=== PATIENT | female | born 1970 | race Hispanic/Latino ===

== ENCOUNTER 2024-04-25 10:23 | Observation (INO) | payer OTHER ==
[~2024-04-25] VITALS: Ht 152.4 cm; Wt 60.3 kg
--- NOTE | 2024-04-25 10:41 | ERN ---
ED Note History of Present Illness Stated Complaint: ULCER PAIN, EAR AND URINE INFECTION Chief Complaint: Abdominal Pain Time Seen by MD: 10:32 Time Seen by Midlevel: 10:40 Dictation: . Derik 53-year-old female with history of type 2 diabetes, hypertension, thyroid dysfunction, neuropathy, gastric ulcer, and hyperlipidemia who presented to the emergency department this morning for evaluation abdominal pain. She reports upper abdominal/LUQ pain accompanied by nausea as well as suprapubic pain and frequent urination, chills and subjective fever. She also states she has some right ear pain which she believes is from getting water in her ear. She states her blood glucose levels have been elevated. She has no local PCP as she is visiting from the [place] area. She denies having a chest pain, palpitations, edema, vomiting, hematemesis, melena, hematochezia, melena, hem atochezia, flank pain, headache, or dizziness. Allergies: Coded Allergies: No Known Allergies (Unverified Allergy, Unknown, 04/25/24) Home Meds Reported Medications Tramadol HCl (Tramadol HCl ER) 100 Mg Cpbp.25.75, 50 MG PO AD PRN for PAIN LEVEL 6 TO 10 04/25/24 Glipizide (Glipizide) 10 Mg Tablet, 10 MG PO AD, TAB 04/25/24 Gabapentin (Gabapentin) 100 Mg Capsule, 300 MG PO TID, CAP 04/25/24 Metformin HCl (Metformin HCl) 1,000 Mg Tablet, 1000 MG PO BID, TAB 04/25/24 Pantoprazole Sodium (Pantoprazole Sodium) 40 Mg Tablet.dr, 1 TAB PO DAILY for 30 Days, #30 TAB 0 Refills 04/25/24 Ezetimibe (Ezetimibe) 10 Mg Tablet, 1 TAB PO DAILY for 30 Days, #30 TAB 0 Refills 04/25/24 Past Medical History Past Medical History: Diabetes-Type II, High Cholesterol, Hypertension, Hyperthyroid Additional Past Medical Hx: NEUROPATHY, GASTRIC ULCERS Surgical History: BTL Surgical History Other: CAROTID ARTERY PSYCH History: no pertinent psych hx Social History: Negative, Other (Visiting [place] from [place].) History: Not Applicable RN Note Reviewed/Agreed w/PFSH: Yes Review of System Dictation REVIEW OF SYSTEMS: CONSTITUTIONAL: Patient denies sweats and weight changes. Reports fatigue, general weakness, chills, and subjective fever EYES: Patient denies any visual symptoms. EARS, NOSE, AND THROAT: No difficulties with hearing. No symptoms of rhinitis or sore throat. Reports right ear pain. CARDIOVASCULAR: Patient denies chest pains, palpitations, orthopnea and paroxysmal nocturnal dyspnea. RESPIRATORY: No dyspnea on exertion, no wheezing or cough. GI: No vomiting, diarrhea, constipation, hematochezia or melena. Reports upper abdominal pain and nausea. : No urinary hesitancy or dribbling. No nocturia. No abnormal urethral discharge. Reports suprapubic pain, dysuria, and urinary frequency. MUSCULOSKELETAL: No myalgias or arthralgias. NEUROLOGIC: No chronic headaches, no seizures. Patient denies numbness, tingling or weakness. PSYCHIATRIC: Patient denies problems with mood disturbance. No problems with anxiety. ENDOCRINE: No excessive urination or excessive thirst. Reports elevated blood glucose readings. DERMATOLOGIC: Patient denies any rashes or skin changes. Initial Vital Sign VS Vital Signs Date Time Temp Pulse Resp B/P (MAP) Pulse Ox O2 Delivery O2 Flow Rate FiO2 04/25/24 10:28 100.0 112 20 133/79 97 Room Air 0 04/25/24 14:01 21 Physical Exam Dictation Vital signs: Reviewed. Temperature 100.1 Constitutional: No acute distress. Non-toxic appearing. Head/Face: Normocephalic, atraumatic. Eyes: Periorbital areas with no swelling, redness, or edema. Lids and lashes are normal. Conjunctival injection is absent. Sclera anicteric. Pupils equal, round, reactive to light. ENT: Pinnas intact and no signs of trauma or erythema. Right ear canal with erythema. TMs no erythema. No nasal discharge or bleeding noted. Oropharynx with no exudate, redness, swelling, masses, exudates, or evidence of obstruction. Uvula midline. Mucous membranes are dry. Neck: Trachea midline, no masses palpated, and no cervical lymphadenopathy. No swelling. Supple, full range of motion. Chest/Axilla: No tenderness, no crepitus, no paradoxical movement, no retractions. Cardiovascular: Regular rate, regular rhythm, no murmur, no gallops. Symmetric pulses. No peripheral edema. Tachycardic with heart rate 112. Normotensive Respiratory: Respirations even and unlabored. Lung sounds clear; no wheezes, rales or rhonchi. Room air SpO2 98% Gastrointestinal: Inspection is normal. No distention is appreciated. Bowel sounds are normal. No mass or organomegaly . Tenderness diffusely No rebound. No rigidity. No voluntary or involuntary guarding. No Cade's sign. : + suprapubic tenderness. Negative CVA tenderness bilaterally. Neurological: Normal speech, gross motor function intact, gross sensory function intact. No focal weakness/Paresthesia. Musculoskeletal/Extremities: All extremities have full range of motion, no pain or tenderness on palpation. Symmetric pulses. Integumentary: Intact. Skin is normal color, warm and dry. Cap refill less than 3 seconds. Results (Laboratory/Radiology) Laboratory/Radiology Labs Reviewed?: Yes CT Scan Comment: PATIENT: OMEGA ROMANO MR#: [id number] : 1970 SEX: F AGE: 53 LOCATION: [facility] ORDER 1236 STATUS: [facility] REPORT#: [id number] SERVICE 1235 REASON: left sided abdominal pain ORDERING PHYSICIAN: ANA LAURA ZEPEDA NP PROCEDURE: ABD PEL WO - CT ABDOMEN/PELVIS W/O CONTRAST CT ABDOMEN/PELVIS W/O CONTRAST HISTORY: Epigastric pain COMPARISON: None TECHNIQUE: Multiple sequential axial images of the abdomen and pelvis were obtained from the dome of the diaphragm through symphysis pubis. Patient was not given contrast through intravenous route. Oral contrast was not given. FINDINGS: No pleural effusion is seen bilaterally. There is no evidence of parenchymal disease or pulmonary nodule of the visualized lower lungs. Degenerative changes of the thoracolumbar spine are present. The heart is not enlarged. Liver measures 17 cm. Stomach is poorly distended with wall thickening may be related to gastritis. The liver, spleen, adrenal glands and pancreas are unremarkable. There is no evidence of hydronephrosis bilaterally. No evidence of renal stone is seen. Fecal material is seen in the colon. There are normal size retroperitoneal and mesenteric lymph nodes. No ascites is seen. Appendix is prominent measuring 6 mm. Minimal adjacent fat stranding is seen with early acute appendicitis is not completely excluded. Clinical correlation is recommended. Pelvic sidewalls are symmetric bilaterally. Bladder is well distended without wall thickening. IMPRESSION: 1. Appendix is prominent measuring 6 mm. Minimal adjacent fat stranding is seen with early acute appendicitis is not completely excluded. Clinical correlation is recommended. There is stomach wall thickening with poor distention may be related to gastritis. CT was performed with one or more following dose reduction techniques: automated exposure control, adjustment of the mA and kv according to patient's size, or use of a iterative reconstruction technique. DICTATED BY: ULISES HENNING MD DATE: 04/25/24 1334 ELECTRONICALLY SIGNED BY: ULISES HENNING MD DATE: 04/25/24 1339 ED Course ED Course Orders Procedure Category Date Status Time Pathology Request LAB 04/26/24 In Process Tissue 10:20 Patient with abdomen that is diffusely tender. CT scan of the abdomen and pelvis revealed prominent appendix measuring 6 mm with adjacent fat stranding suspicious for early appendicitis. Laboratory findings as noted below. No elevation of WBCs or lactic acid level. Na 134 and glucose 306. While in the emergency department she received doses of Zofran, Dilaudid, Rocephin, and NS 1000 mL IV as bolus. Findings were discussed with Dr.Oyetunde Root who accepts patient for consultation. Per his request CT abdomen and pelvis with oral and IV contrast will be ordered. Findings were discussed with hospitalist Medical Decision Making MDM MDM: Differential diagnosis: Diverticulitis, UTI, Appendicitis Rationale: Tests considered and ordered secondary to shared decision making include: labs, ECG and radiology Previous outside records reviewed: Old ER visits. Risk of complication and/or morbidity or mortality of patient management: None Medications-Per medication reconciliation Need for hospitalization: Patient does meet criteria for hospitalization. Need for emergency major/minor surgery: No There are no social concerns with this patient. Prescription drug management Prescriptions will include symptomatic care Patient's prior external medical records from other ER visits were reviewed by me as indicated. Prior testing and results from previous visits were reviewed. Prior tests were taken into account with medical decision making and resource utilization, independent historian/historians were used to obtain complete medical history. I independently interpreted the test that were performed, results were reviewed by me and considered findings on radiology if ordered. Medical management and examination interpretation discussions were had by me with other qualified healthcare professionals as indicated for the patient's care. DX & DISP Disposition: Observation Departure Impression: Primary Impression: Abdominal pain Additional Impressions: Type 2 diabetes mellitus with hyperglycemia, Possible early appendicitis Condition: Stable Assign Patient to: Dr. Lennox Monzon I performed a substantive portion of the visit. I have reviewed and personally made and approve the management plan that is documented in the notes by myself with SUELLEN/resident. I acknowledged full responsibility for the patient's management plan. ANA LAURA ZEPEDA NP Apr 25, 2024 10:41 JUANCARLOS GALAN DO May 02, 2024 07:40
[2024-04-25 11:56] LABS: BASOPHILS # (AUTO) 0.03 K/uL (0.00-0.20); BASOPHILS % (AUTO) 0.4 % (0.0-5.0); EOSINOPHILS # (AUTO) 0.05 K/uL (0.00-0.70); EOSINOPHILS % (AUTO) 0.7 % (0.0-8.0); HEMATOCRIT 42.2 % (36-48); IMMATURE GRANULOCYTE ABSOLUTE 0.02 K/uL (0-1); LYMPHOCYTES # (AUTO) 2.3 K/uL (1.0-4.8); MEAN CORPUSCULAR HEMOGLOBIN 28.8 pg (27.0-33.0); MEAN CORPUSCULAR HGB CONC 33.2 g/dL (32.0-36.0); MEAN CORPUSCULAR VOLUME 86.8 fL (79-99); MONOCYTES # (AUTO) 0.6 K/uL (0.1-1.0); NEUTROPHILS # (AUTO) 4.6 K/uL (1.8-7.7); NEUTROPHILS % (AUTO) 60.6 % (40.0-77.0); PLATELET COUNT (AUTO) 204 K/uL (130-400); RED BLOOD CELL COUNT(AUTO) 4.86 MIL/uL (4.00-5.50); RED CELL DISTRIBUTION WIDTH 12.2 % (11.0-15.5); WHITE BLOOD COUNT (AUTO) 7.6 K/uL (4.8-10.8)
[2024-04-25 12:06] LABS: CREATININE 0.6 mg/dL (0.5-1.0); POTASSIUM 4.2 mmol/L (3.5-5.1)
--- NOTE | 2024-04-25 13:38 | HMCIMG ---
CT ABDOMEN/PELVIS W/O CONTRAST HISTORY: Epigastric pain COMPARISON: None TECHNIQUE: Multiple sequential axial images of the abdomen and pelvis were obtained from the dome of the diaphragm through symphysis pubis. Patient was not given contrast through intravenous route. Oral contrast was not given. FINDINGS: No pleural effusion is seen bilaterally. There is no evidence of parenchymal disease or pulmonary nodule of the visualized lower lungs. Degenerative changes of the thoracolumbar spine are present. The heart is not enlarged. Liver measures 17 cm. Stomach is poorly distended with wall thickening may be related to gastritis. The liver, spleen, adrenal glands and pancreas are unremarkable. There is no evidence of hydronephrosis bilaterally. No evidence of renal stone is seen. Fecal material is seen in the colon. There are normal size retroperitoneal and mesenteric lymph nodes. No ascites is seen. Appendix is prominent measuring 6 mm. Minimal adjacent fat stranding is seen with early acute appendicitis is not completely excluded. Clinical correlation is recommended. Pelvic sidewalls are symmetric bilaterally. Bladder is well distended without wall thickening. IMPRESSION: 1. Appendix is prominent measuring 6 mm. Minimal adjacent fat stranding is seen with early acute appendicitis is not completely excluded. Clinical correlation is recommended. There is stomach wall thickening with poor distention may be related to gastritis. CT was performed with one or more following dose reduction techniques: automated exposure control, adjustment of the mA and kv according to patient's size, or use of a iterative reconstruction technique.
[2024-04-25] MEDS: ondanSETRON 4MG INJ IVP ONE (13:49)
[2024-04-25] MEDS: acetaMINOPHEN 325 MG TAB PO ONE (13:50)
[2024-04-25] MEDS: cefTRIAXone 1G VIAL IVPB ONE (13:50)
[2024-04-25] MEDS: 0.9%NACL 1000ML 1,000 ML IV ONE (13:50)
[2024-04-25] MEDS ORDERED: DIATR MEGLU/DIATRIZOATE SODIUM 30 ML BOTTLE ONE ×2 (16:16→16:51)
[2024-04-25] MEDS ORDERED: hydrALAZine 20MG/ML VIAL IV PRN (16:30)
[2024-04-25] MEDS ORDERED: LACTULOSE 20 GM/30 ML UDCUP PO PRN (16:30)
[2024-04-25] MEDS ORDERED: guaiFENesin-DM 200/20MG 10ML PO PRN (16:30)
[2024-04-25] MEDS ORDERED: ZOLPidem TARTrate 5 MG TAB PO PRN (16:30)
[2024-04-25] MEDS: INSULIN humuLIN R 100 UNIT/ML 3ML SQ SCH (16:30)
[2024-04-25] MEDS ORDERED: FAMOTIDINE 20MG VIAL IV PRN (16:30)
[2024-04-25] MEDS ORDERED: VANCOMYCIN PROTOCOL PER PHARMACY IV PRN (16:30)
[2024-04-25] MEDS ORDERED: PoTASSium chl 10% ELIXIR 20MEQ 20 MEQ/15 ML UDCUP PO PRN (16:30)
[2024-04-25] MEDS ORDERED: MAG/ALUM/SIMETH 30 ML UDCUP PO PRN (16:30)
[2024-04-25] MEDS ORDERED: DEXTROSE 50%-WATER 50 ML DISP.SYRIN IV PRN (16:30)
[2024-04-25] MEDS ORDERED: GLUCAGON 1MG KIT 1 MG ML IM PRN (16:30)
[2024-04-25] MEDS ORDERED: PoTASSium chloRIDE 10MEQ/100ML 100 ML IV PRN (16:30)
[2024-04-25] MEDS ORDERED: acetaMINOPHEN 325 MG TAB PO PRN ×2 (16:30)
[2024-04-25] MEDS ORDERED: DiphenhydrAMINE HCL 50 MG/ML VIAL IV PRN (16:30)
[2024-04-25] MEDS ORDERED: NITROGLYCERIN 0.4 MG SL TAB SL PRN (16:30)
[2024-04-25] MEDS ORDERED: IOHEXOL 350 MG/ML 100ML INFUS..BTL IV ONE (16:32)
--- NOTE | 2024-04-25 16:51 | HP ---
[facility] HISTORY AND PHYSICAL Date of Service: Apr 25, 2024 Time of Service: 16:38 PCP: Patient has PCP in [place] she goes to the clinic so no specific Dr. Admitting: [place] Allergies: No Allergy Information Available, No Known Drug Allergies HISTORY OF PRESENT ILLNESS: [ Patient is 53 years old female with a past medical history of diabetes, hyperlipidemia, stroke 2022, neuropathy, gastric ulcer, gastritis, GERD, hypothyroidism, hysterectomy, right carotid surgery, who came to emergency department with a complaint of left upper abdominal pain, which has been accompanied by nausea as well as suprapubic pain and frequent urination with the chills and subjective fever.] She also states she has some right ear pain which she believes is from getting water in her ear. She states her blood glucose levels have been elevated. She has no local PCP as she is visiting from the [place] area. She denies having a chest pain, palpitations, edema, vomiting, hematemesis, melena, hematochezia, melena, hematochezia, flank pain, headache, or dizziness. Most recent vital signs temperature 100.2 pulse 102 respiration 18 blood pressure 124/84. Patient is on room air satting 99%. WBC 7.6 hemoglobin 14 hematocrit 42.2 platelets 204. Sodium 134 potassium 4.2 CO2 27 BUN 14 creatinine 0.6 GFR 107 random glucose 306 lactic acid [address] abdomen /pelvis showed early acute appendicitis. Surgeon was consulted for abnormal CT abdomen/pelvis four acute appendicitis and asked to order CT abdomen/pelvis with contrast. Patient will be admitted under hospitalist care for further evaluation. A.m. labs REVIEW OF SYSTEMS CONSTITUTIONAL: Denies fevers, chills, or night sweats. No unintentional weight loss reported. NEUROLOGICAL: Denies headache, amaurosis fugax, motor weakness, sensory deficit, vertigo/spinning sensation, gait abnormalities, or tremors. ENT: No hearing loss, otalgia, otorrhea, rhinitis, rhinorrhea, hoarseness, or so re throat. CARDIOVASCULAR: Denies any exertional angina, dyspnea on exertion, orthopnea, paroxysmal nocturnal dyspnea, palpitations, life-threatening arrhythmias, claudication. PULMONARY: Denies any shortness of breath, cough, phlegm/sputum, hemoptysis, pleuritic chest pain. SLEEP: Denies morning headaches, daytime somnolence or napping. Denies difficulty falling asleep, staying asleep, waking from sleep. Denies knowledge of snoring. GASTROINTESTINAL: Denies any type of dysphagia to either liquids or solids. Denies vomiting, pyrosis, early satiety, diarrhea, constipation, or changes in stool consistency or caliber. Denies coffee-ground emesis, hematemesis, hematochezia, or melanotic stools. Abdominal pain associated with the nausea GENITOURINARY: Denies frequency, urgency, nocturia, hematuria or incontinence (Storage/Irritative symptoms.) Low urinary stream, straining to void, urinary intermittency or hesitancy, splitting of the voiding stream, terminal dribbling. ENDOCRINOLOGIC: Denies polyuria, polydipsia, polyphagia or heat/cold intolerances. HEMATOLOGIC: Denies thrombophilia/previous clots, or coagulopathy/bleeding disorders. ONCOLOGIC: Denies personal history of malignancy. DERMATOLOGIC: Denies rashes or pruritus. PSYCHIATRIC: Denies any suicidal or homicidal ideation. Denies hallucinations. PAST MEDICAL HISTORY: [ Diabetes, hyperlipidemia, stroke 2022, neuropathy, gastric ulcer, gastritis, GERD, hypothyroidism ] PAST SURGICAL HISTORY: [ Hysterectomy, right carotid surgery ] PAST SOCIAL HISTORY: [Patient is a current smoker 4 to 6 cigarettes a day. Patient denies drinking alcohol. Patient denies any drug abuse. ] FAMILY HISTORY: [Noncontributory ] Coded Allergies: No Known Allergies (Unverified Allergy, Unknown, 04/25/24) PHYSICAL EXAM GENERAL APPEARANCE: The patient is awake, alert, and oriented, in no acute cardiopulmonary distress. NEUROLOGICAL: Cranial nerves II-XII grossly intact. Motor is 5/5 in bilateral upper and lower extremities proximal to distal. No sensory deficits. HEENT: Face is symmetric. Pupils are equal and reactive. Extraocular movements are intact. NECK: Supple. No JVD. No thyromegaly. No submental, submandibular, pre- /postauricular, occipital or supraclavicular lymphadenopathy. CHEST: Normal chest expansion. No Telemetry. LUNGS: Absence of any rales, rhonchi or any wheezing. CARDIOVASCULAR: Regular. S1 and S2 normal. No appreciable rubs, murmurs or gallops. ABDOMEN: Soft, nontender, and nondistended. There is no rebound, voluntary guarding, or rigidity. : Deferred. No [place]ud[place]. EXTREMITIES: Non-edematous and not cyanotic. No clubbing. Good capillary refill. SKIN: No skin breakdown. Vital Sign (Last 24 Hours) 04/25/24 14:01 Temp 100.2 Pulse 102 Resp 18 B/P (MAP) 124/84 Pulse Ox 99 O2 Delivery Room Air* O2 Flow Rate 0 FiO2 21 LABS: Laboratory: Test 04/25/24 11:45 Range/Units White Blood Count 7.6 4.8-10.8 K/uL Red Blood Count 4.86 4.00-5.50 MIL/uL Hemoglobin 14.0 12.0-16.0 g/dL Hematocrit 42.2 36-48 % Mean Corpuscular Volume 86.8 79-99 fL Mean Corpuscular Hemoglobin 28.8 27.0-33.0 pg Mean Corpuscular Hemoglobin Concent 33.2 32.0-36.0 g/dL Red Cell Distribution Width 12.2 11.0-15.5 % Platelet Count 204 130-400 K/uL Mean Platelet Volume 10.5 7.5-10.5 fL Immature Granulocyte % (Auto) 0.3 0-1 % Neutrophils (%) (Auto) 60.6 40.0-77.0 % Lymphocytes (%) (Auto) 30.0 21.0-51.0 % Monocytes (%) (Auto) 8.0 3.0-13.0 % Eosinophils (%) (Auto) 0.7 0.0-8.0 % Basophils (%) (Auto) 0.4 0.0-5.0 % Neutrophils # (Auto) 4.6 1.8-7.7 K/uL Lymphocytes # (Auto) 2.3 1.0-4.8 K/uL Monocytes # (Auto) 0.6 0.1-1.0 K/uL Eosinophils # (Auto) 0.05 0.00-0.70 K/uL Basophils # (Auto) 0.03 0.00-0.20 K/uL Absolute Immature Granulocyte (auto 0.02 0-1 K/uL Nucleated Red Blood Cells 0.0 0.0-0.19 % Sodium Level 134 L 136-145 mmol/L Potassium Level 4.2 3.5-5.1 mmol/L Chloride Level 101 101-111 mmol/L Carbon Dioxide Level 27 21-32 mmol/L Blood Urea Nitrogen 14 7-18 mg/dL Creatinine 0.6 0.5-1.0 mg/dL Glomerular Filtration Rate Calc 107 >90 mL/min Random Glucose 306 H 70-105 mg/dL Lactic Acid Level 1.0 0.8-2.5 mmol/L Total Calcium 9.4 8.5-10.1 mg/dL Lipase 27 16-77 U/L Current Medications Medications (Trade) Dose Ordered Sig/Olesya Route PRN Reason Start Time Stop Time Status Last Admin Dose Admin Dextrose (D50w) 50 ml AD PRN IV HYPOGLYCEMIA PROTOCOL 04/25/24 16:30 05/25/24 16:29 Glucagon (Glucagon 1mg Kit) 1 mg AD PRN IM HYPOGLYCEMIA PROTOCOL 04/25/24 16:30 05/25/24 16:29 Insulin Human Regular (humuLIN R 100 UNIT/ML 3ML) INSULIN SLIDING SCAL... ACHS SQ 04/25/24 16:30 05/25/24 16:29 Magnesium Sulfate 50 ml @ 0 mls/hr PROTOCOL PRN IV Other 04/25/24 16:30 05/25/24 16:29 Potassium Chloride 100 ml @ 100 mls/hr AD PRN IV POTASSIUM PROTOCOL 04/25/24 16:30 05/25/24 16:29 Potassium Chloride (K-Dur/Klor-Con 20meq) 10 meq AD PRN PO POTASSIUM PROTOCOL 04/25/24 16:30 05/25/24 16:29 Potassium Chloride (KCl 10% Elixir 20meq/15ml) 10 meq AD PRN PO POTASSIUM PROTOCOL 04/25/24 16:30 05/25/24 16:29 DIAGNOSTICS / RADIOLOGY: [ ] ASSESSMENT: [ Acute sepsis POA Uncontrolled diabetes mellitus type 2 with hypoglycemia POA Acute appendicitis per CT abdomen/pelvis POA Severe acute abdominal pain due to above Hyperlipidemia, POA Electrolyte imbalance hyponatremia 134 Uncontrolled hypertension POA Neuropathy POA Gastric ulcer POA Gastritis POA GERD POA Hypothyroidism POA History of stroke 2022 ] PLAN: [ Admit to: Medical-surgical floor Consults: Surgeon Antibiotics: Vancomycin, Zosyn Tests: CT abdomen/pelvis with contrast Fluids normal saline at 70 mL/hour NEURO: Minimize central acting medications as possible. Fall Precautions. Well lighted room through the day and minimize interruptions through the night to prevent acute delirium. PULMONARY: Supplemental 02 as needed BiPAP as necessary, for respiratory distress Titrate Fio2 to keep Spo2 > or = 90% DuoNebs and CPT as needed IS hourly while awake for pulmonary hygiene Out of bed to chair as tolerated VAP Bundle Maintain aspiration precautions at all times CARDIOVASCULAR: Follow hemodynamics. Vital signs per facility protocol GI & NUTRITION: CT abdomen/pelvis showed early acute appendicitis Continue nutritional support Aspirations precautions Prokinetic agents and laxatives as needed KIDNEYS & ELECTROLYTES: Strict monitoring of intake and output Daily weights Avoid nephrotoxic agents Monitor electrolytes and replace as needed Goal urine output of 30mL/hr or 0.5mL/kg/hr Medications to be dosed according to renal function. Avoid contrast if possible ENDOCRINE: Maintain blood glucose between 100-180 at all times. Insulin sliding scale for blood glucose management Hypoglycemia and hyperglycemia protocol in place INFECTIOUS DISEASE: Urinalysis pending Trend temperature, WBC and procalcitonin level Follow cultures, deescalate antibiotics as soon as possible. Panculture if new onset fever HEMATOLOGY & COAGULATION: Monitor H&H. Keep Hgb > 7 Transfuse 1 unit of PRBC for Hgb < 7 Transfuse 1 pack of platelets of platelets < 20, 000 Watch for any signs and symptoms of bleeding SKIN: Pressure ulcer prevention per facility protocol Specialty mattress as needed Treatment plan discussed with patient and family at the bedside Medications to be reconciled once obtained by patient and/or family and available to be reconciled in computer p.r.n. medication for pain nausea and vomiting Questions were answered We will continue to monitor the patient closely [employer] for disposition Rehab: PT/OT GI: PPI DVT: SCD's Code Status: Full Resuscitation Disposition: TBD Prognosis: Guarded] ADVANCED CARE PLANNING 1. Which of the following were discussed? Hospice Care - Yes / No Therapeutic options - Yes / No Advance Directives - Yes / No Other discussions - 2. Discussed with who? Patient 3. Voluntary nature of this service was explained to the patient? Yes / No 4. Amount of time spent - __ more than 35 minutes 5. Reviewed by Physician? (if this service was performed by NPP) Yes / No ATTESTATION BY PHYSICIAN I have seen and examined the patient. I reviewed the documentation, medical decision making, and treatment plan as noted by the mid-level provider above. I agree with the findings and plan of care. ELICIA Novak MD P[employer]ER Apr 25, 2024 16:51
[2024-04-25 18:07] LABS: APPEARANCE,URINE CLEAR (CLEAR); BILIRUBIN,URINE NEGATIVE (NEGATIVE); COLOR,URINE LIGHT-YELLOW (YELLOW); GLUCOSE, URINE (UA) >=1000 mg/dL (NEGATIVE); KETONES,URINE NEGATIVE (NEGATIVE); LEUKOCYTE ESTERASE ,URINE 250 Leu/uL (NEGATIVE); NITRATE,URINE 2+ (NEGATIVE); OCCULT BLOOD,URINE NEGATIVE (NEGATIVE); PH,URINE 5.5 (5.0-8.0); PROTEIN,URINE NEGATIVE (NEGATIVE); UROBILINOGEN,URINE 0.2 mg/dL (0.2-1.0)
[2024-04-25 18:10] LABS: BACTERIA,URINE FEW /HPF (None Seen); SQUAMOUS EPITHELIAL CELL,UR FEW /HPF (0-2)
[2024-04-25 18:22] LABS: INFLUENZA TYPE A Negative For Type A (NEGATIVE); INFLUENZA TYPE B Negative For Type B (NEGATIVE)
[2024-04-25] MEDS: 0.9%NACL 1000ML 1,000 ML IV SCH (18:35)
[2024-04-25] MEDS: VANCOMYCIN 1.5 GM/250 ML BAG 250 ML IV ONE (19:02)
--- NOTE | 2024-04-25 19:25 | HMCIMG ---
CT ABDOMEN/PELVIS W/CONTRAST HISTORY: possible appy needs oral and IV contrast TECHNIQUE: CT ABDOMEN/PELVIS W/CONTRAST 100 Omnipaque contrast was used. Oral contrast was given. Coronal and sagittal reformats were obtained. CT was performed with one or more of the following dose reduction techniques: Automated exposure control, adjustment of the mA and/or kV according to the patient's size, or use of the iterative reconstruction technique. Comparison: 04/25/2024 FINDINGS: No pulmonary consolidation or pleural effusion is seen. There is hepatic steatosis. No calcified gallstone is seen. The spleen, pancreas, and adrenal glands are within normal limits. There is no hydronephrosis. Area of hypoenhancement seen in the upper pole of the left kidney concerning for infection. Correlate clinically. There is underdistention versus mild urinary bladder thickening. Correlate with urinalysis. Mildly dilated appendix measuring 8 mm with questionable mild adjacent fat stranding which may represent early acute appendicitis in the proper clinical setting. There is no evidence of perforation. No bowel obstruction is seen. No bowel obstruction identified. No free abdominal air is seen. Degenerative changes of the spine. Visualized aorta is normal in caliber. IMPRESSION: 1. Area of hypoenhancement seen in the upper pole of the left kidney concerning for infection. Correlate clinically. There is underdistention versus mild urinary bladder thickening. Correlate with urinalysis. 2. Mildly dilated appendix measuring 8 mm with questionable mild adjacent fat stranding which may represent early acute appendicitis in the proper clinical setting. There is no evidence of perforation. No bowel obstruction is seen.
[2024-04-25] MEDS: ketOROlac 15MG/ML VIAL (15MG/ML) IV PRN (19:32)
[2024-04-25] MEDS: MAGNESIUM CITRATE 296 ML SOLUTION PO ONE (19:37)
[2024-04-25] MEDS ORDERED: GLIP10TA16 PO (19:42)
[2024-04-25] MEDS ORDERED: EZET10TA48 PO (19:42)
[2024-04-25] MEDS ORDERED: METF-446 PO (19:42)
[2024-04-25] MEDS ORDERED: PANT40TA54 PO (19:42)
[2024-04-25] MEDS ORDERED: TRAM100C3 PO (19:42)
[2024-04-25] MEDS ORDERED: GABA-529 PO (19:42)
--- NOTE | 2024-04-25 19:45 | NUR ---
called for report, floor nurse not avail, will wait for callback
[2024-04-25] MEDS: acetaMINOPHEN 325 MG TAB PO PRN (19:48)
--- NOTE | 2024-04-25 19:58 | NUR ---
ER REPORT ATTEMPTMADE TO RECEIVE REPORT ON PT. EXT 107 NO ANSWER
[2024-04-25] MEDS: ZOSYN 3.375GM+NS 50ML 50 ML ONE (20:00)
[2024-04-25] MEDS: FAMOTIDINE 20MG VIAL IV SCH (20:01)
[2024-04-25] MEDS: HEParin 5,000 UNIT VIAL SQ SCH (20:01)
[2024-04-25] MEDS: ZOSYN 3.375GM+NS 50ML 50 ML IV SCH (20:01)
[2024-04-25 21:36] VITALS: TEMP 99.3
[2024-04-25 22:00] VITALS: BP 112/74; PULSE 82; RESP 20; TEMP 97.8
[2024-04-25 22:30] VITALS: O2SAT 97
[2024-04-25] MEDS: morPHINE 2 MG SYG IVP PRN (22:30)
[2024-04-25] MEDS: ondanSETRON 4MG INJ IV PRN (22:30)
--- NOTE | 2024-04-25 22:42 | NUR ---
DR VICTORIA VOICEMAIL LEFT/UPDATE ON PT STATUS.
[2024-04-26] VITALS (24 sets, daily range): BP systolic 109–157; BP diastolic 50–91; PULSE 80–116; RESP 16–20; TEMP 97.8–98.5; O2SAT 95–96
--- NOTE | 2024-04-26 00:06 | CONS ---
GENERAL SURGERY CONSULTATION NOTE DATE OF CONSULTATION: Apr 26, 2024 TIME OF CONSULTATION: 00:04 CONSULTING SERVICE: Julien Root MD REQUESTING PHYSICAIN: [ ] REASON FOR CONSULTATION: [ ] Abdominal pain Acute appendicitis HISTORY OF PRESENT ILLNESS: [ ] 53-year-old lady who presented with abdominal pain Pain started yesterday I started with nausea but no vomiting No diarrhea or constipation Patient has had previous similar pain in the past PAST MEDICAL HISTORY: [ PAST MEDICAL HISTORY: [ Diabetes, hyperlipidemia, stroke 2022, neuropathy, gastric ulcer, gastritis, GERD, hypothyroidism ] PAST SURGICAL HISTORY: [ Hysterectomy, right carotid surgery ] ] PAST SURGICAL HISTORY: [ ] FAMILY HISTORY: [ ] Positive for hypertension SOCIAL HISTORY: [ No alcohol smoker Current Medications Medications (Trade) Dose Ordered Sig/Olesya Route Start Time Stop Time Status Last Admin Dose Admin Famotidine (Pepcid 20mg Vial) 20 mg BID IV 04/25/24 21:00 05/25/24 20:59 04/25/24 20:01 20 MG Heparin Sodium (Porcine) (HEParin 5,000 UNIT VIAL) 5,000 unit BID SQ 04/25/24 21:00 05/25/24 20:59 04/25/24 20:01 5,000 UNIT Insulin Human Regular (humuLIN R 100 UNIT/ML 3ML) INSULIN SLIDING SCAL... 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 PHYSICAL EXAMINATION: GENERAL: [Patient is lying comfortably in bed, not in any obvious distress.] HEAD: [Normal with no signs of head trauma.] EYES: [Not pale not jaundiced afebrile to touch.] ENT: [ Normal.] NECK: [Supple,no tenderness,no lymphadenopathy,no masses,no thyromegaly ,no bruits, no JVD.] LUNGS: [Clear breath sounds bilaterally. No wheezes, rales, or rhonchi.] HEART: [Regular rate and rhythm. Normal S1 and S2, without murmurs, rub or gallop.] VASC: [No edema. Peripheral pulses normal and equal in all extremities.] ABD: Obese Bowel sounds present,soft, lower right lower quadrant tenderness epigastric tenderness r, no masses, no organomegaly.] : [Normal, no suprapubic tenderness.] LYMPH: [No lymphadenopathy noted.] EXT: [ Warm soft, non tender.] SKIN: [ No rashes or lesions.] NEURO: [ Awake Alert and oriented x3.] Vital Signs (last 8hr) Date Time Temp Pulse Resp B/P (MAP) Pulse Ox O2 Delivery O2 Flow Rate FiO2 04/25/24 22:00 97.9 82 20 112/74 97 Room Air 04/25/24 21:42 99.3 100 18 125/60 98 Room Air* 0 21 04/25/24 19:48 99.5 04/25/24 19:26 99.9 101 18 132/65 98 Room Air* 0 21 LABORATORY: [ ] Hematology Labs: Test 04/25/24 11:45 Range/Units White Blood Count 7.6 4.8-10.8 K/uL Red Blood Count 4.86 4.00-5.50 MIL/uL Hemoglobin 14.0 12.0-16.0 g/dL Hematocrit 42.2 36-48 % Mean Corpuscular Volume 86.8 79-99 fL Mean Corpuscular Hemoglobin 28.8 27.0-33.0 pg Mean Corpuscular Hemoglobin Concent 33.2 32.0-36.0 g/dL Red Cell Distribution Width 12.2 11.0-15.5 % Platelet Count 204 130-400 K/uL Mean Platelet Volume 10.5 7.5-10.5 fL Immature Granulocyte % (Auto) 0.3 0-1 % Neutrophils (%) (Auto) 60.6 40.0-77.0 % Lymphocytes (%) (Auto) 30.0 21.0-51.0 % Monocytes (%) (Auto) 8.0 3.0-13.0 % Eosinophils (%) (Auto) 0.7 0.0-8.0 % Basophils (%) (Auto) 0.4 0.0-5.0 % Neutrophils # (Auto) 4.6 1.8-7.7 K/uL Lymphocytes # (Auto) 2.3 1.0-4.8 K/uL Monocytes # (Auto) 0.6 0.1-1.0 K/uL Eosinophils # (Auto) 0.05 0.00-0.70 K/uL Basophils # (Auto) 0.03 0.00-0.20 K/uL Absolute Immature Granulocyte (auto 0.02 0-1 K/uL Nucleated Red Blood Cells 0.0 0.0-0.19 % Chemistry Labs: Test 04/25/24 19:59 04/25/24 11:45 Range/Units Whole Blood Glucose 174 H 70-110 MG/DL Sodium Level 134 L 136-145 mmol/L Potassium Level 4.2 3.5-5.1 mmol/L Chloride Level 101 101-111 mmol/L Carbon Dioxide Level 27 21-32 mmol/L Blood Urea Nitrogen 14 7-18 mg/dL Creatinine 0.6 0.5-1.0 mg/dL Glomerular Filtration Rate Calc 107 >90 mL/min Random Glucose 306 H 70-105 mg/dL Lactic Acid Level 1.0 0.8-2.5 mmol/L Total Calcium 9.4 8.5-10.1 mg/dL Lipase 27 16-77 U/L Coagulation Labs: Test 04/25/24 18:24 Range/Units D-Dimer Quantitative (PE/DVT) 429 0-500 ng/mL DIAGNOSTICS / RADIOLOGY: [Copy/Paste Echos/Imaging Report here] ASSESSMENT: [] Acute appendicitis PLAN: [] NPO/IVF/IV ANTIOBIOTICS Schedule for OR We talked about various treatment options including but not limited to surgery. We talked about risks and benefits of surgery, patient verbalized understanding has agreed to proceed [ ]. We will schedule [ laparoscopic appendectomy and possible open]. JULIEN ROOT MD Apr 26, 2024 00:06
[2024-04-26] MEDS ORDERED: morPHINE 2 MG SYG IVP PRN (00:30)
[2024-04-26 01:06] LABS: HEMOGLOBIN A1C 12.7 % (4.0-6.0)
[2024-04-26] MEDS: hydroMORPHone 1 MG INJ IVP PRN ×2 (04:38→13:04)
[2024-04-26 06:11] LABS: BASOPHILS # (AUTO) 0.01 K/uL (0.00-0.20); BASOPHILS % (AUTO) 0.2 % (0.0-5.0); EOSINOPHILS # (AUTO) 0.16 K/uL (0.00-0.70); EOSINOPHILS % (AUTO) 3.1 % (0.0-8.0); HEMATOCRIT 36.2 % (36-48); LYMPHOCYTES # (AUTO) 2.2 K/uL (1.0-4.8); LYMPHOCYTES % (AUTO) 42.4 % (21.0-51.0); MEAN CORPUSCULAR HEMOGLOBIN 29.2 pg (27.0-33.0); MEAN CORPUSCULAR HGB CONC 33.1 g/dL (32.0-36.0); MEAN CORPUSCULAR VOLUME 88.1 fL (79-99); MONOCYTES # (AUTO) 0.5 K/uL (0.1-1.0); MONOCYTES % (AUTO) 8.8 % (3.0-13.0); NEUTROPHILS # (AUTO) 2.3 K/uL (1.8-7.7); NEUTROPHILS % (AUTO) 45.5 % (40.0-77.0); PLATELET COUNT (AUTO) 171 K/uL (130-400); RED BLOOD CELL COUNT(AUTO) 4.11 MIL/uL (4.00-5.50); RED CELL DISTRIBUTION WIDTH 12.3 % (11.0-15.5); WHITE BLOOD COUNT (AUTO) 5.1 K/uL (4.8-10.8)
[2024-04-26 06:20] LABS: ALBUMIN 2.6 g/dL (3.5-5.0); BILIRUBIN,DIRECT 0.1 mg/dL (0.0-0.3); BILIRUBIN,TOTAL 0.3 mg/dL (0.2-1.0); CREATININE 0.4 mg/dL (0.5-1.0); MAGNESIUM 1.9 mg/dL (1.80-2.40); POTASSIUM 3.6 mmol/L (3.5-5.1); TOTAL PROTEIN, SERUM 6.6 g/dL (6.0-8.3)
[2024-04-26] MEDS: VANCOMYCIN 750MG VIAL IVPB SCH (08:23)
[2024-04-26] MEDS ORDERED: MIDAZOLAM HCL 1 MG/ML 2ML VIAL ONE (09:41)
[2024-04-26] MEDS ORDERED: LIDOCAINE PF 100MG/5ML (2%) SYRINGE 5ML ONE (09:41)
[2024-04-26] MEDS ORDERED: SUCCINYLCHOLINE CHLORIDE 20 MG/ML 10 ML VIAL ONE (09:41)
[2024-04-26] MEDS ORDERED: proPOFol 10 MG/ML 20ML VIAL IV ONE (09:41)
[2024-04-26] MEDS ORDERED: rocuRONium bROMide 10MG/1ML 5ML VL ONE (09:41)
[2024-04-26] MEDS ORDERED: FENTanyl CITRate PF 50 MCG/1 ML 2ML VIAL ONE (09:41)
[2024-04-26] MEDS ORDERED: PoTASSium chloRIDE 20MEQ/100ML 100 ML IV SCH (10:00)
[2024-04-26] MEDS: BUPIvacaine/PF 0.25% 30ML VIAL IJ ONE (10:06)
[2024-04-26] MEDS: LIDOCAINE 1%-EPI 1:100,000 20 ML VIAL ONE (10:06)
[2024-04-26] MEDS ORDERED: GLYCOPYRROLATE 0.2 MG/ML 5 ML VIAL ONE (10:27)
[2024-04-26] MEDS ORDERED: NEOSTIGMINE METHYLSULFATE 1MG/ML IV ONE (10:27)
--- NOTE | 2024-04-26 10:34 | OP ---
OPERATIVE NOTE: DATE OF SERVICE: PREOPERATIVE DIAGNOSIS: Acute appendicitis. POSTOPERATIVE DIAGNOSIS: Acute appendicitis. PROCEDURE PERFORMED: Laparoscopic appendectomy. SURGEON: Julien Root MD ANESTHESIA: General. ESTIMATED BLOOD LOSS: Minimal. FINDINGS: Acutely inflamed appendix. SPECIMEN REMOVED: Appendix. COMPLICATIONS: None. DESCRIPTION OF PROCEDURE: The patient was brought into the Operating Room. After proper identification, the patient was placed on the operating table in the supine position. General anesthesia was then administered and the patient was endotracheally intubated. Attention was then focussed in the area of the abdomen. The same was prepped and draped in the usual sterile fashion. An appropriate time-out was then carried out at this point. Then, I proceeded by making a supraumbilical incision. The incision was carried through skin and subcutaneous tissue till the fascia was identified. Fascia was then carefully incised. Stay stitches were placed on either side of the fascia and the Roxy port was then introduced. The CO2 was then insufflated into the abdomen and the laparoscope was then introduced. Inspection of the abdomen showed evidence of right lower quadrant inflammation and elongated inflamed appendix. So, at this point, I proceeded by placing 2 additional ports, one in the suprapubic region and one in the left lower quadrant. The patient was then placed in Trendelenburg position and rotated to his left. The appendix was then grasped and the attachment of the appendix to the lateral wall was then taken down using the Harmonic scalpel. Once this was done, the mesoappendix was then opened and the appendiceal vessels were then taken using the vascular load of the Endo CARLOS. The appendix itself was then taken from the base of the cecum using the tissue load of the Endo CARLOS. The specimen was then delivered using an Endopouch. Copious amount of irrigation was carried out at this point. Hemostasis was noted to be adequate. Then I proceeded by closing the wound. Ports were withdrawn under vision. CO2 was let out of the abdomen and the supraumbilical fascia was approximated together using 0 Vicryl [id number] stitches and the skin was approximated together using 4-0 Monocryl subcuticular closure. Steri-Strips and sterile dressings were then applied. Instrument and sponges count were found to be correct x2. The patient was then woken up, extubated and taken to Recovery Room in stable condition. The patient tolerated the procedure well. JULIEN ROOT MD Apr 26, 2024 10:34
[2024-04-26] MEDS: MEPERIDINE-PF 100 MG/ML SYG ONE (11:03)
[2024-04-26] MEDS ORDERED: oxyCODONE/aceTAMIN 5/325MG TAB PO PRN (12:00)
--- NOTE | 2024-04-26 12:44 | PN ---
[facility] PROGRESS NOTE Date of Service: Apr 26, 2024 Time of Service: 12:38 Attending doctor Velia SUBJECTIVE: [ 04/25 Patient is 53 years old female with a past medical history of diabetes, hyperlipidemia, stroke 2022, neuropathy, gastric ulcer, gastritis, GERD, hypothyroidism, hysterectomy, right carotid surgery, who came to emergency department with a complaint of left upper abdominal pain, which has been accompanied by nausea as well as suprapubic pain and frequent urination with the chills and subjective fever.] She also states she has some right ear pain which she believes is from getting water in her ear. She states her blood gluc ose levels have been elevated. She has no local PCP as she is visiting from the [place] area. She denies having a chest pain, palpitations, edema, vomiting, hematemesis, melena, hematochezia, melena, hematochezia, flank pain, headache, or dizziness. Most recent vital signs temperature 100.2 pulse 102 respiration 18 blood pressure 124/84. Patient is on room air satting 99%. WBC 7.6 hemoglobin 14 hematocrit 42.2 platelets 204. Sodium 134 potassium 4.2 CO2 27 BUN 14 creatinine 0.6 GFR 107 random glucose 306 lactic acid 1.[address] abdomen /pelvis showed early acute appendicitis. 04/26 patient was seen by nurse practitioner and physician during rounding. Patient underwent CT abdomen with contrast and it showed area of hypo and hence seen in upper pole of the left kidney concerning for infection. There is under distention versus mild urinary bladder thickening. Mildly dilated appendix with questionable mild adjustment fat stranding which may represent early acute appendicitis. No evidence of perforation. No bowel obstruction. Patient was evaluated by the surgeon and patient is pending appendectomy today 04/26/2024. Also patient's potassium was 3.6. Patient received 20 mEq of IV potassium. Anticipated discharge within 24 hours.] REVIEW OF SYSTEMS CONSTITUTIONAL: Denies fevers, chills, or night sweats. No unintentional weight loss reported. NEUROLOGICAL: Denies headache, amaurosis fugax, motor weakness, sensory deficit, vertigo/spinning sensation, gait abnormalities, or tremors. ENT: No hearing loss, otalgia, otorrhea, rhinitis, rhinorrhea, hoarseness, or sore throat. CARDIOVASCULAR: Denies any exertional angina, dyspnea on exertion, orthopnea, paroxysmal nocturnal dyspnea, palpitations, life-threatening arrhythmias, claudication. PULMONARY: Denies any shortness of breath, cough, phlegm/sputum, hemoptysis, pleuritic chest pain. SLEEP: Denies morning headaches, daytime somnolence or napping. Denies difficulty falling asleep, staying asleep, waking from sleep. Denies knowledge of snoring. GASTROINTESTINAL: Denies any type of dysphagia to either liquids or solids. Denies vomiting, pyrosis, early satiety, diarrhea, constipation, or changes in stool consistency or caliber. Denies coffee-ground emesis, hematemesis, hematochezia, or melanotic stools. Abdominal pain associated with the nausea GENITOURINARY: Denies frequency, urgency, nocturia, hematuria or incontinence (Storage/Irritative symptoms.) Low urinary stream, straining to void, urinary intermittency or hesitancy, splitting of the voiding stream, terminal dribbling. ENDOCRINOLOGIC: Denies polyuria, polydipsia, polyphagia or heat/cold intolerances. HEMATOLOGIC: Denies thrombophilia/previous clots, or coagulopathy/bleeding disorders. ONCOLOGIC: Denies personal history of malignancy. DERMATOLOGIC: Denies rashes or pruritus. PSYCHIATRIC: Denies any suicidal or homicidal ideation. Denies hallucinations. PHYSICAL EXAM GENERAL APPEARANCE: The patient is awake, alert, and oriented, in no acute cardiopulmonary distress. NEUROLOGICAL: Cranial nerves II-XII grossly intact. Motor is 5/5 in bilateral upper and lower extremities proximal to distal. No sensory deficits. HEENT: Face is symmetric. Pupils are equal and reactive. Extraocular movements are intact. NECK: Supple. No JVD. No thyromegaly. No submental, submandibular, pre- /postauricular, occipital or supraclavicular lymphadenopathy. CHEST: Normal chest expansion. No Telemetry. LUNGS: Absence of any rales, rhonchi or any wheezing. CARDIOVASCULAR: Regular. S1 and S2 normal. No appreciable rubs, murmurs or gallops. ABDOMEN: Soft, nontender, and nondistended. There is no rebound, voluntary guarding, or rigidity. : Deferred. No Agudelo. EXTREMITIES: Non-edematous and not cyanotic. No clubbing. Good capillary refill. SKIN: No skin breakdown. Vital Signs (last 8hr) Date Time Temp Pulse Resp B/P (MAP) Pulse Ox O2 Delivery O2 Flow Rate FiO2 04/26/24 12:15 109 17 121/67 95 Nasal Cannula 2.0 04/26/24 12:00 98.2 115 17 117/66 93 Nasal Cannula 2.0 04/26/24 11:45 116 17 110/50 92 Nasal Cannula 2.0 04/26/24 11:40 97.9 108 19 125/68 97 Nasal Cannula 2.0 04/26/24 11:35 111 20 129/72 98 Nasal Cannula 2.0 04/26/24 11:30 110 18 132/72 98 Nasal Cannula 2.0 04/26/24 11:25 112 20 140/73 98 Nasal Cannula 2.0 04/26/24 11:20 109 18 134/74 98 Nasal Cannula 2.0 04/26/24 11:15 110 19 137/72 98 Nasal Cannula 2.0 04/26/24 11:10 108 20 149/82 98 Nasal Cannula 2.0 04/26/24 11:05 111 18 140/77 100 Nonrebreathing Mask 10.0 100 04/26/24 11:00 112 18 148/82 100 Nonrebreathing Mask 10.0 100 04/26/24 10:55 110 20 143/78 100 Nonrebreathing Mask 10.0 100 04/26/24 10:50 111 18 150/79 100 Nonrebreathing Mask 10.0 100 04/26/24 10:45 112 20 149/81 100 Nonrebreathing Mask 10.0 100 04/26/24 10:40 97.9 110 20 148/83 100 Nonrebreathing Mask 10.0 100 04/26/24 07:54 98.1 101 16 126/74 97 Room Air LABS: Laboratory: Test 04/26/24 10:54 04/26/24 05:54 04/25/24 18:24 04/25/24 17:58 Range/Units Whole Blood Glucose 206 H 70-110 MG/DL White Blood Count 5.1 # 4.8-10.8 K/uL Red Blood Count 4.11 4.00-5.50 MIL/uL Hemoglobin 12.0 12.0-16.0 g/dL Hematocrit 36.2 36-48 % Mean Corpuscular Volume 88.1 79-99 fL Mean Corpuscular Hemoglobin 29.2 27.0-33.0 pg Mean Corpuscular Hemoglobin Concent 33.1 32.0-36.0 g/dL Red Cell Distribution Width 12.3 11.0-15.5 % Platelet Count 171 130-400 K/uL Mean Platelet Volume 10.8 H 7.5-10.5 fL Immature Granulocyte % (Auto) 0.0 0-1 % Neutrophils (%) (Auto) 45.5 40.0-77.0 % Lymphocytes (%) (Auto) 42.4 21.0-51.0 % Monocytes (%) (Auto) 8.8 3.0-13.0 % Eosinophils (%) (Auto) 3.1 0.0-8.0 % Basophils (%) (Auto) 0.2 0.0-5.0 % Neutrophils # (Auto) 2.3 1.8-7.7 K/uL Lymphocytes # (Auto) 2.2 1.0-4.8 K/uL Monocytes # (Auto) 0.5 0.1-1.0 K/uL Eosinophils # (Auto) 0.16 0.00-0.70 K/uL Basophils # (Auto) 0.01 0.00-0.20 K/uL Absolute Immature Granulocyte (auto 0.00 0-1 K/uL Nucleated Red Blood Cells 0.0 0.0-0.19 % Sodium Level 138 136-145 mmol/L Potassium Level 3.6 3.5-5.1 mmol/L Chloride Level 104 101-111 mmol/L Carbon Dioxide Level 27 21-32 mmol/L Blood Urea Nitrogen 12 7-18 mg/dL Creatinine 0.4 L 0.5-1.0 mg/dL Glomerular Filtration Rate Calc 118 >90 mL/min Random Glucose 231 H 70-105 mg/dL Lactic Acid Level 0.8 0.8-2.5 mmol/L Total Calcium 8.7 8.5-10.1 mg/dL Magnesium Level 1.90 1.80-2.40 mg/dL Total Bilirubin 0.3 0.2-1.0 mg/dL Direct Bilirubin 0.1 0.0-0.3 mg/dL Aspartate Amino Transf (AST/SGOT) 24 10-37 U/L Alanine Aminotransferase (ALT/SGPT) 24 12-78 U/L Alkaline Phosphatase 90 50-136 U/L Ammonia 25 11-32 umol/L Total Creatine Kinase 19 L 21-232 U/L B-Type Natriuretic Peptide 56 0-100 pg/mL Total Protein 6.6 6.0-8.3 g/dL Albumin 2.6 L 3.5-5.0 g/dL Procalcitonin < 0.05 L 0.05-0.5 ng/mL D-Dimer Quantitative (PE/DVT) 429 0-500 ng/mL Urine Color LIGHT-YELLOW YELLOW Urine Appearance CLEAR CLEAR Urine pH 5.5 5.0-8.0 Urine Specific [place] 1.015 1.001-1.031 Urine Protein NEGATIVE NEGATIVE mg/dL Urine Glucose (UA) >=1000 H NEGATIVE mg/dL Urine Ketones NEGATIVE NEGATIVE mg/dL Urine Occult Blood NEGATIVE NEGATIVE Urine Nitrate 2+ H NEGATIVE Urine Bilirubin NEGATIVE NEGATIVE mg/dL Urine Urobilinogen 0.2 0.2-1.0 mg/dL Urine Leukocyte Esterase 250 H NEGATIVE Leti/uL Urine RBC 2-5 H 0-1 /HPF Urine WBC 6-10 H 0-1 /HPF Urine Squamous Epithelial Cells FEW 0-2 /HPF Urine Bacteria FEW None Seen /HPF Influenza Type A Antigen Negative For Type A NEGATIVE Influenza Type B Antigen Negative For Type B NEGATIVE Test 04/25/24 11:49 04/25/24 11:45 Range/Units Hemoglobin A1c 12.7 H 4.0-6.0 % Estimated Average Glucose (eAG) 318 H 70-126 mg/dL Lipase 27 16-77 U/L Current Medications Medications (Trade) Dose Ordered Sig/Olesya Route PRN Reason Start Time Stop Time Status Last Admin Dose Admin Acetaminophen (TYLenol 325MG TAB) 650 mg Q4H PRN PO MILD PAIN (1-3) 04/25/24 16:30 05/25/24 16:29 Acetaminophen (TYLenol 325MG TAB) 650 mg Q6H PRN PO TEMPERATURE GREATER THAN 101.5 04/25/24 16:30 05/25/24 16:29 04/25/24 19:48 650 MG Acetaminophen (TYLenol 325MG TAB) 650 mg Q6H PRN PO MILD PAIN (1-3) 04/25/24 16:30 05/25/24 16:29 Al Hydroxide/Mg Hydroxide (MAALox PLUS 30ML) 30 ml Q6H PRN PO INDIGESTION 04/25/24 16:30 05/25/24 16:29 Dextrose (D50w) 50 ml AD PRN IV HYPOGLYCEMIA PROTOCOL 04/25/24 16:30 05/25/24 16:29 Diphenhydramine HCl (BENAdryl INJ) 25 mg Q6H PRN IV SEVERE ITCHING/RASH 04/25/24 16:30 05/25/24 16:29 Famotidine (Pepcid 20mg Vial) 20 mg BID IV 04/25/24 21:00 05/25/24 20:59 04/26/24 08:23 20 MG Famotidine (Pepcid 20mg Vial) 20 mg BID PRN IV NAUSEA/VOMITING 04/25/24 16:30 05/25/24 16:29 Glucagon (Glucagon 1mg Kit) 1 mg AD PRN IM HYPOGLYCEMIA PROTOCOL 04/25/24 16:30 05/25/24 16:29 Guaifenesin/ Dextromethorphan (RobiTUSSin DM 200/20MG 10ML) 10 ml Q4H PRN PO COUGH 04/25/24 16:30 05/25/24 16:29 Heparin Sodium (Porcine) (HEParin 5,000 UNIT VIAL) 5,000 unit BID SQ 04/25/24 21:00 05/25/24 20:59 04/25/24 20:01 5,000 UNIT Hydralazine HCl (APRESOLine 20MG INJ) 10 mg Q6H PRN IV For:SBP above 160;DBP above 90 04/25/24 16:30 05/25/24 16:29 Hydromorphone HCl (DiLAUDid 1MG INJ) 1 mg Q3H3 PRN IVP SEVERE PAIN (7-10) 04/26/24 12:00 05/01/24 00:00 Hydromorphone HCl (DiLAUDid 1MG INJ) 1 mg Q4H PRN IVP SEVERE PAIN (7-10) 04/26/24 00:00 04/26/24 11:52 DC 04/26/24 04:38 1 MG Insulin Human Regular (humuLIN R 100 UNIT/ML 3ML) INSULIN SLIDING SCAL... ACHS SQ 04/25/24 16:30 05/25/24 16:29 04/26/24 12:12 3 UNIT Ketorolac Tromethamine (toRADol) 15 mg Q8H PRN IV MODERATE PAIN (4-6) 04/25/24 16:30 04/30/24 16:29 04/25/24 19:32 15 MG Lactulose (Constulose 20gm/ 30ml Udcup) 20 gm BID PRN PO CONSTIPATION 04/25/24 16:30 05/25/24 16:29 Magnesium Sulfate 50 ml @ 0 mls/hr PROTOCOL PRN IV Other 04/25/24 16:30 05/25/24 16:29 Morphine Sulfate (morPHINE 2MG SYG) 1 mg Q4H PRN IVP SEVERE PAIN (7-10) 04/25/24 16:30 04/25/24 23:58 DC 04/25/24 22:30 1 MG Morphine Sulfate (morPHINE 2MG SYG) 2 mg Q4H PRN IVP SEVERE PAIN (7-10) 04/26/24 00:30 04/26/24 00:03 DC Nitroglycerin (Nitrostat) 0.4 mg PROTOCOL PRN SL CHEST PAIN 04/25/24 16:30 05/25/24 16:29 Ondansetron HCl (zoFRAN 4MG INJ) 4 mg Q6H PRN IV NAUSEA/VOMITING 04/25/24 16:30 05/25/24 16:29 04/25/24 22:30 4 MG Oxycodone/ Acetaminophen (perCOCET) 1 tab Q4H PRN PO SEVERE PAIN (7-10) 04/26/24 12:00 04/26/24 12:01 DC Piperacillin Sod/ Tazobactam Sod 50 ml @ 12.5 mls/hr [id number] IV 04/25/24 21:00 05/05/24 20:59 04/26/24 04:38 12.5 MLS/HR Potassium Chloride 100 ml @ 50 mls/hr PROTOCOL IV 04/26/24 10:00 05/26/24 09:59 Potassium Chloride 100 ml @ 100 mls/hr AD PRN IV POTASSIUM PROTOCOL 04/25/24 16:30 04/26/24 09:57 DC Potassium Chloride (K-Dur/Klor-Con 20meq) 10 meq AD PRN PO POTASSIUM PROTOCOL 04/25/24 16:30 05/25/24 16:29 Potassium Chloride (KCl 10% Elixir 20meq/15ml) 10 meq AD PRN PO POTASSIUM PROTOCOL 04/25/24 16:30 4/2/25 16:29 Sodium Chloride 1,000 ml @ 100 mls/hr Q10H IV 04/25/24 16:30 05/25/24 16:29 04/25/24 18:35 70 MLS/HR Vancomycin HCl (Vancomycin 750mg) 750 mg Q12H IVPB 04/26/24 08:00 05/06/24 07:59 04/26/24 08:23 750 MG Vancomycin HCl (Vancomycin Protocol) 1 each PROTOCOL PRN IV VANCOMYCIN PROTOCOL 04/25/24 16:30 05/09/24 16:29 Zolpidem Tartrate (AmbIEN) 5 mg HS PRN PO INSOMNIA 04/25/24 16:30 05/25/24 16:29 DIAGNOSTICS / RADIOLOGY: [ ] ASSESSMENT: [ Acute sepsis POA Acute complicated cystitis POA Uncontrolled diabetes mellitus type 2 with hypoglycemia POA Acute appendicitis per CT abdomen/pelvis POA s/p appendectomy 04/26/[address] Odell Severe acute abdominal pain due to above Hyperlipidemia, POA Electrolyte imbalance hyponatremia 134 Uncontrolled hypertension POA Neuropathy POA Gastric ulcer POA Gastritis POA GERD POA Hypothyroidism POA History of stroke 2022 ] PLAN: [ Admit to: Medical-surgical floor Consults: Surgeon Antibiotics: Vancomycin, Zosyn Tests: None Fluids normal saline at 70 mL/hour NEURO: Minimize central acting medications as possible. Fall Precautions. Well lighted room through the day and minimize interruptions through the night to prevent acute delirium. PULMONARY: Supplemental 02 as needed BiPAP as necessary, for respiratory distress Titrate Fio2 to keep Spo2 > or = 90% DuoNebs and CPT as needed IS hourly while awake for pulmonary hygiene Out of bed to chair as tolerated VAP Bundle Maintain aspiration precautions at all times CARDIOVASCULAR: Follow hemodynamics. Vital signs per facility protocol GI & NUTRITION: Patient is pending appendectomy today 04/26/2024 CT abdomen/pelvis showed early acute appendicitis CT abdomen/pelvis with contrast showed left kidney concerning for infection. Early acute appendicitis. No perforation. No obstruction Continue nutritional support Aspirations precautions Prokinetic agents and laxatives as needed KIDNEYS & ELECTROLYTES: Patient will receive 20 mEq of IV potassium Strict monitoring of intake and output Daily weights Avoid nephrotoxic agents Monitor electrolytes and replace as needed Goal urine output of 30mL/hr or 0.5mL/kg/hr Medications to be dosed according to renal function. Avoid contrast if possible ENDOCRINE: Maintain blood glucose between 100-180 at all times. Insulin sliding scale for blood glucose management Hypoglycemia and hyperglycemia protocol in place INFECTIOUS DISEASE: Urinalysis positive for leukocytosis Trend temperature, WBC and procalcitonin level Follow cultures, deescalate antibiotics as soon as possible. Panculture if new onset fever HEMATOLOGY & COAGULATION: Monitor H&H. Keep Hgb > 7 Transfuse 1 unit of PRBC for Hgb < 7 Transfuse 1 pack of platelets of platelets < 20, 000 Watch for any signs and symptoms of bleeding SKIN: Pressure ulcer prevention per facility protocol Specialty mattress as needed Treatment plan discussed with patient and family at the bedside Medications to be reconciled once obtained by patient and/or family and available to be reconciled in computer p.r.n. medication for pain nausea and vomiting Questions were answered We will continue to monitor the patient closely Cement Loader for disposition Rehab: PT/OT GI: PPI DVT: SCD's Code Status: Full Resuscitation Disposition: TBD Prognosis: Guarded] ATTESTATION BY PHYSICIAN I have seen and examined the patient. I reviewed the documentation, medical decision making, and treatment plan as noted by the mid-level provider above. I agree with the findings and plan of care. ELICIA Novak MD SUPPORT SERVICES COORDINATOR Apr 26, 2024 12:44
--- NOTE | 2024-04-26 14:50 | NUR ---
DCP Patient states lives in [place], visiting [place] Bethea [phone]. States unemployed and pending outcome for disability, remains independent. States able to complete ADL's on her own. Has a shower chair, denies other medical devices. Denies home health services, home care provider or dialysis. PCP - Daniel Connor - [facility] - [facility]. Upon discharge, Amber Bethea [phone] and family assist with care. Provided with Spark Etail. Celestina Horn, sister is her emergency contact [phone]. MD HIGGINS -- Status post Arabella Perez with Dr. Briscoe. Addendum: 04/26/24 at 1456 by PATRICK NOVA RN CM Amended: Links added.
[2024-04-26] MEDS: PoTASSium chloRIDE 20MEQ ER 20 MEQ ERTAB PO PRN (18:27)
[2024-04-26] MEDS: MAGNESIUM 2GM PREMIX 50ML 50 ML IV PRN (18:28)
[2024-04-27] VITALS: BP 131/87; PULSE 93; RESP 18; TEMP 98.1
[2024-04-27 04:00] VITALS: RESP 18; TEMP 98.7
[2024-04-27 05:47] LABS: BASOPHILS # (AUTO) 0.02 K/uL (0.00-0.20); BASOPHILS % (AUTO) 0.3 % (0.0-5.0); EOSINOPHILS # (AUTO) 0.21 K/uL (0.00-0.70); EOSINOPHILS % (AUTO) 3.2 % (0.0-8.0); HEMATOCRIT 36.1 % (36-48); IMMATURE GRANULOCYTE ABSOLUTE 0.01 K/uL (0-1); LYMPHOCYTES # (AUTO) 2.2 K/uL (1.0-4.8); LYMPHOCYTES % (AUTO) 33.5 % (21.0-51.0); MEAN CORPUSCULAR HEMOGLOBIN 28.7 pg (27.0-33.0); MEAN CORPUSCULAR HGB CONC 32.4 g/dL (32.0-36.0); MEAN CORPUSCULAR VOLUME 88.7 fL (79-99); MONOCYTES # (AUTO) 0.7 K/uL (0.1-1.0); MONOCYTES % (AUTO) 10.3 % (3.0-13.0); NEUTROPHILS # (AUTO) 3.5 K/uL (1.8-7.7); NEUTROPHILS % (AUTO) 52.5 % (40.0-77.0); PLATELET COUNT (AUTO) 203 K/uL (130-400); RED BLOOD CELL COUNT(AUTO) 4.07 MIL/uL (4.00-5.50); RED CELL DISTRIBUTION WIDTH 12.1 % (11.0-15.5); WHITE BLOOD COUNT (AUTO) 6.6 K/uL (4.8-10.8)
[2024-04-27 06:00] LABS: ALBUMIN 2.5 g/dL (3.5-5.0); BILIRUBIN,TOTAL 0.3 mg/dL (0.2-1.0); CREATININE 0.5 mg/dL (0.5-1.0); POTASSIUM 3.6 mmol/L (3.5-5.1); TOTAL PROTEIN, SERUM 6.5 g/dL (6.0-8.3)
[2024-04-27 06:42] VITALS: BP 118/74; PULSE 89
[2024-04-27 08:00] VITALS: BP 130/77; PULSE 93; RESP 19; TEMP 99
[2024-04-27 08:12] VITALS: O2SAT 98
[2024-04-27 12:00] VITALS: BP 136/81; PULSE 95; RESP 21; TEMP 98.4
[2024-04-27] MEDS: acetaMINOPHEN WITH coDEINE 1 TAB TAB PO PRN (12:13)
--- NOTE | 2024-04-27 13:40 | DS ---
Discharge Summary Hospital Course Summary: DATE OF ADMISSION:[04/25/2024] DATE OF DISCHARGE:[04/27/2024] DISPOSITION:[Home] CONDITION:[Medically cleared] CONSULTANTS:[Surgeon] FOLLOW UP APPOINTMENTS:[PCP 2 to 3 days. Surgeon within one week] PROCEDURES:[Appendectomy 04/26/[address] Odell] IMAGING: report attached to summary MICROBIOLOGY: report attached to summary ACTIVITY:[Independent] HOME MEDICATIONS: see [facility] NEW MEDICATIONS:[Prescription was written by the surgeon for Tylenol No. 3, Augmentin 875 p.o. b.i.d. 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 She states her blood glucose levels have been elevated. She has no local PCP as she is visiting from the [facility]. She denies having a chest pain, palpitations, edema, vomiting, hematemesis, melena, hematochezia, melena, hematochezia, flank pain, headache, or dizziness. Throughout the hospitalization patient underwent CT abdomen/pelvis and showed early acute appendicitis. Patient was evaluated by the surgeon and appendectomy was performed on 04/26/2024. Today patient is cleared to be discharged home fr om the surgeon. Prescription was written by the surgeon for Tylenol No. 3, Augmentin 875 p.o. b.i.d. for seven days and MiraLax. Patient's potassium today is 3.6 patient received 40 mEq of potassium prior discharge. Patient was also instructed to follow up with PCP in 2 to 3 days. And follow-up with the surgeon within one week. Patient denies any shortness of breath, chest pain, nausea, vomiting or any other discomfort. Procedure(s): REVIEW OF SYSTEMS CONSTITUTIONAL: Denies fevers, chills, or night sweats. No unintentional weight loss reported. NEUROLOGICAL: Denies headache, amaurosis fugax, motor weakness, sensory deficit, vertigo/spinning sensation, gait abnormalities, or tremors. ENT: No hearing loss, otalgia, otorrhea, rhinitis, rhinorrhea, hoarseness, or sore throat. CARDIOVASCULAR: Denies any exertional angina, dyspnea on exertion, orthopnea, paroxysmal nocturnal dyspnea, palpitations, life-threatening arrhythmias, claudication. PULMONARY: Denies any shortness of breath, cough, phlegm/sputum, hemoptysis, pleuritic chest pain. SLEEP: Denies morning headaches, daytime somnolence or napping. Denies difficulty falling asleep, staying asleep, waking from sleep. Denies knowledge of snoring. GASTROINTESTINAL: Denies any type of dysphagia to either liquids or solids. Denies vomiting, pyrosis, early satiety, diarrhea, constipation, or changes in stool consistency or caliber. Denies coffee-ground emesis, hematemesis, hemat ochezia, or melanotic stools. Abdominal pain associated with the nausea GENITOURINARY: Denies frequency, urgency, nocturia, hematuria or incontinence (Storage/Irritative symptoms.) Low urinary stream, straining to void, urinary intermittency or hesitancy, splitting of the voiding stream, terminal dribbling. ENDOCRINOLOGIC: Denies polyuria, polydipsia, polyphagia or heat/cold intolerances. HEMATOLOGIC: Denies thrombophilia/previous clots, or coagulopathy/bleeding disorders. ONCOLOGIC: Denies personal history of malignancy. DERMATOLOGIC: Denies rashes or pruritus. PSYCHIATRIC: Denies any suicidal or homicidal ideation. Denies hallucinations. PHYSICAL EXAM GENERAL APPEARANCE: The patient is awake, alert, and oriented, in no acute cardiopulmonary distress. NEUROLOGICAL: Cranial nerves II-XII grossly intact. Motor is 5/5 in bilateral upper and lower extremities proximal to distal. No sensory deficits. HEENT: Face is symmetric. Pupils are equal and reactive. Extraocular movements are intact. NECK: Supple. No JVD. No thyromegaly. No submental, submandibular, pre- /postauricular, occipital or supraclavicular lymphadenopathy. CHEST: Normal chest expansion. No Telemetry. LUNGS: Absence of any rales, rhonchi or any wheezing. CARDIOVASCULAR: Regular. S1 and S2 normal. No appreciable rubs, murmurs or g allops. ABDOMEN: Soft, nontender, and nondistended. There is no rebound, voluntary gua rding, or rigidity. : Deferred. No [place]. EXTREMITIES: Non-edematous and not cyanotic. No clubbing. Good capillary refill. SKIN: No skin breakdown. Assessment/Plan: ASSESSMENT: [ Acute sepsis POA Acute complicated cystitis POA Uncontrolled diabetes mellitus type 2 with hypoglycemia POA Acute appendicitis per CT abdomen/pelvis POA s/p appendectomy 04/26/[address] Odell Severe acute abdominal pain due to above Hyperlipidemia, POA Electrolyte imbalance hyponatremia 134 Uncontrolled hypertension POA Neuropathy POA Gastric ulcer POA Gastritis POA GERD POA Hypothyroidism POA History of stroke 2022 ] Home Medications: Reported Medications Tramadol HCl (Tramadol HCl ER) 100 Mg Cpbp.25.75, 50 MG PO AD PRN for PAIN LEVEL 6 TO 10 04/25/24 Glipizide (Glipizide) 10 Mg Tablet, 10 MG PO AD, TAB 04/25/24 Gabapentin (Gabapentin) 100 Mg Capsule, 300 MG PO TID, CAP 04/25/24 Metformin HCl (Metformin HCl) 1,000 Mg Tablet, 1000 MG PO BID, TAB 04/25/24 Pantoprazole Sodium (Pantoprazole Sodium) 40 Mg Tablet.dr, 1 TAB PO DAILY for 30 Days, #30 TAB 0 Refills 04/25/24 Ezetimibe (Ezetimibe) 10 Mg Tablet, 1 TAB PO DAILY for 30 Days, #30 TAB 0 Refills 04/25/24 Time spent arranging discharge: 31-60 minutes ATTESTATION BY PHYSICIAN I have seen and examined the patient. I reviewed the documentation, medical decision making, and treatment plan as noted by the mid-level provider above. I agree with the findings and plan of care. ELICIA Novak MD LOSS PREVENTION OFFICER Apr 27, 2024 13:40
--- NOTE | 2024-04-27 14:31 | NUR ---
FOLLOW UP APPOINTMENT FOLLOW UP APPOINTMENT WITH DR. VICTORIA SCHEDULED FOR 05/19/2024 @1430 P.M.
[2024-04-27] MEDS: PoTASSium chloRIDE 20MEQ ER 20 MEQ ERTAB PO ONE (14:38)
--- NOTE | 2024-04-27 15:14 | NUR ---
DISCHARGE PERIPHERAL IV DISCONTINUED. DISCHARGE INSTRUCTIONS, DISCHARGE EDUCATION, FOLLOW UP APPOINTMENT INFORMATION, AND PRESCRIPTIONS PROVIDED TO PATIENT PATIENT VERBALIZED UNDERSTANDING OF FOLLOW UP APPOINTMENT WITH DR. VICTORIA 05/19/2024 AT 2:30 P.M. PATIENT VERBALIZED UNDERSTANDING OF NEW PRESCRIPTIONS AND PREFERRED PHARMACY. ALL QUESTIONS ANSWERED.
== END 2024-04-27 15:15 | disposition home or self-care (01) ==
LOC: EDH 10:23 → INTOOBSV 16:29 → EDHIP 16:29 → 3CH 18:43
PROVIDERS: ADMIT Internal Medicine; ATTEND Internal Medicine
DX: K35.80 Unspecified acute appendicitis (principal); A41.9 Sepsis, unspecified organism; E11.649 Type 2 diabetes mellitus with hypoglycemia without coma; E87.1 Hypo-osmolality and hyponatremia; E78.5 Hyperlipidemia, unspecified; E11.40 Type 2 diabetes mellitus with diabetic neuropathy, unspecified; K25.9 Gastric ulcer, unspecified as acute or chronic, without hemorrhage or perforation; K29.70 Gastritis, unspecified, without bleeding; K21.9 Gastro-esophageal reflux disease without esophagitis; N30.00 Acute cystitis without hematuria; K52.9 Noninfective gastroenteritis and colitis, unspecified; E03.9 Hypothyroidism, unspecified; H92.01 Otalgia, right ear; F17.210 Nicotine dependence, cigarettes, uncomplicated; I10 Essential (primary) hypertension; Z86.73 Personal history of transient ischemic attack (TIA), and cerebral infarction without residual deficits; Z87.11 Personal history of peptic ulcer disease; Z90.710 Acquired absence of both cervix and uterus
CPT/HCPCS: 96376 ×3; 96372 ×3; 96365; 96366 ×3; 96375 ×3; 96367; 96368; 99285; 83036; 80048 ×2; 83690; 85025 ×3; 85378; 87086; 87804 ×2; 82948 ×8; 83605 ×2; 81001; 36415 ×3; 74176; 74177; 44970; 82550; 80076; 83735 ×2; 83880; 82140; 88304; 97161; 97116; 97530 ×2; 84145; 80053; G0378 ×47; Q9963; J3490 ×7; J2270; J7030 ×3; J0696; J2405 ×2; J2543 ×7; J1644 ×3; J1885 ×2; Q9967; J3370 ×4; A4344; J3475; J3010; J1171 ×4; J0330; J0665; J2003; J2250; J2704; J2710; J2175; J1815 ×3; C1769 ×3; A4649 ×4; A4930; A4223; A4222; A4216; A4600; A4450; 96374

== ENCOUNTER 2024-08-21 12:11 | Emergency (ER) | payer OTHER ==
[~2024-08-21] VITALS: Ht 152.4 cm; Wt 62.6 kg
[~2024-08-21 12:11] MED LIST: EZET10TA48 PO; GABA-529 PO; GLIP10TA16 PO; METF-446 PO; PANT40TA54 PO; TRAM100C3 PO
[2024-08-21 12:46] LABS: BASOPHILS # (AUTO) 0.03 K/uL (0.00-0.20); BASOPHILS % (AUTO) 0.5 % (0.0-5.0); EOSINOPHILS # (AUTO) 0.27 K/uL (0.00-0.70); EOSINOPHILS % (AUTO) 4.6 % (0.0-8.0); HEMATOCRIT 44.8 % (36-48); IMMATURE GRANULOCYTE ABSOLUTE 0.01 K/uL (0-1); LYMPHOCYTES # (AUTO) 2.7 K/uL (1.0-4.8); LYMPHOCYTES % (AUTO) 46.3 % (21.0-51.0); MEAN CORPUSCULAR HEMOGLOBIN 29.4 pg (27.0-33.0); MEAN CORPUSCULAR HGB CONC 33.3 g/dL (32.0-36.0); MEAN CORPUSCULAR VOLUME 88.4 fL (79-99); MONOCYTES # (AUTO) 0.4 K/uL (0.1-1.0); MONOCYTES % (AUTO) 5.9 % (3.0-13.0); NEUTROPHILS # (AUTO) 2.5 K/uL (1.8-7.7); NEUTROPHILS % (AUTO) 42.5 % (40.0-77.0); PLATELET COUNT (AUTO) 207 K/uL (130-400); RED BLOOD CELL COUNT(AUTO) 5.07 MIL/uL (4.00-5.50); WHITE BLOOD COUNT (AUTO) 5.9 K/uL (4.8-10.8)
[2024-08-21 12:57] LABS: CREATININE 0.7 mg/dL (0.5-1.0); POTASSIUM 4.5 mmol/L (3.5-5.1)
[2024-08-21 12:58] LABS: INR 0.97 (0.85-1.15); PROTHROMBIN TIME 10.3 SEC (9.6-11.6)
[2024-08-21 13:00] LABS: ALBUMIN 3.3 g/dL (3.5-5.0); BILIRUBIN,DIRECT 0.1 mg/dL (0.0-0.3); BILIRUBIN,TOTAL 0.3 mg/dL (0.2-1.0)
[2024-08-21 13:16] LABS: SARS-CoV-2, RNA, NAAT POSITIVE SARS CoV-2 (NEGATIVE)
[2024-08-21 13:20] LABS: INFLUENZA TYPE A Negative For Type A (NEGATIVE); INFLUENZA TYPE B Negative For Type B (NEGATIVE)
[2024-08-21] MEDS: ondanSETRON 4MG INJ IVP ONE (13:45)
[2024-08-21] MEDS: morPHINE 2 MG SYG IVP ONE (13:45)
[2024-08-21] MEDS: FAMOTIDINE 20MG VIAL IV ONE (13:45)
[2024-08-21 14:11] LABS: APPEARANCE,URINE CLEAR (CLEAR); BILIRUBIN,URINE NEGATIVE (NEGATIVE); COLOR,URINE LIGHT-YELLOW (YELLOW); GLUCOSE, URINE (UA) >=1000 mg/dL (NEGATIVE); KETONES,URINE 5 mg/dL (NEGATIVE); LEUKOCYTE ESTERASE ,URINE NEGATIVE Leu/uL (NEGATIVE); NITRATE,URINE NEGATIVE (NEGATIVE); OCCULT BLOOD,URINE NEGATIVE (NEGATIVE); PH,URINE 5.5 (5.0-8.0); PROTEIN,URINE 10 mg/dL (NEGATIVE); RBC,URINE 0-1 /HPF (0-1); SQUAMOUS EPITHELIAL CELL,UR RARE /HPF (0-2); UROBILINOGEN,URINE 0.2 mg/dL (0.2-1.0)
[2024-08-21] MEDS ORDERED: AZIT250T9 PO (14:33)
[2024-08-21] MEDS ORDERED: ONDA-243 PO (14:33)
--- NOTE | 2024-08-21 14:35 | ERN ---
General Chief Complaint: Abdominal Pain Stated Complaint: ABD PAIN Time Seen by MD: 12:13 History of Present Illness Initial Comments 54 y/o female came in for abdominal pain and nausea and vomiting. Pt otherwise has no concerns. Allergies: Coded Allergies: No Known Allergies (Unverified Allergy, Unknown, 04/25/24) Home Meds Reported Medications Tramadol HCl (Tramadol HCl ER) 100 Mg Cpbp.25.75, 50 MG PO AD PRN for PAIN LEVEL 6 TO 10 04/25/24 Glipizide (Glipizide) 10 Mg Tablet, 10 MG PO AD, TAB 04/25/24 Gabapentin (Gabapentin) 100 Mg Capsule, 300 MG PO TID, CAP 04/25/24 Metformin HCl (Metformin HCl) 1,000 Mg Tablet, 1000 MG PO BID, TAB 04/25/24 Pantoprazole Sodium (Pantoprazole Sodium) 40 Mg Tablet.dr, 1 TAB PO DAILY for 30 Days, #30 TAB 0 Refills 04/25/24 Ezetimibe (Ezetimibe) 10 Mg Tablet, 1 TAB PO DAILY for 30 Days, #30 TAB 0 Refills 04/25/24 Past Medical History Past Medical History: GERD, High Cholesterol, Hypothyroid Medical History Other: NEUROPATHY, GASTRIC ULCERS Past Surgical History: Appendectomy, BTL Surgical History Other: ABD HERNIA REPAIR Social History Social History: Negative, Other Female( History) History: Not Applicable ROS Dictation Abdominal pain Physical Exam General Appearance: (+) no apparent distress Orientation: (+) alert, (+) oriented x 3 Respiratory: (+) chest non-tender, (+) lungs clear Heart: (+) regular, (+) no gallop Vascular: (+) no edema Gastrointestinal: (+) soft, (+) non-tender, (+) no organomegaly, (+) bowel sound present Results Laboratory and Microbiology Lab and Micro Result Laboratory Tests Test 08/21/24 12:37 08/21/24 12:38 08/21/24 13:30 White Blood Count 5.9 K/uL (4.8-10.8) Red Blood Count 5.07 MIL/uL (4.00-5.50) Hemoglobin 14.9 g/dL (12.0-16.0) Hematocrit 44.8 % (36-48) Mean Corpuscular Volume 88.4 fL (79-99) Mean Corpuscular Hemoglobin 29.4 pg (27.0-33.0) Mean Corpuscular Hemoglobin Concent 33.3 g/dL (32.0-36.0) Red Cell Distribution Width 13.0 % (11.0-15.5) Platelet Count 207 K/uL (130-400) Mean Platelet Volume 10.7 fL (7.5-10.5) H Immature Granulocyte % (Auto) 0.2 % (0-1) Neutrophils (%) (Auto) 42.5 % (40.0-77.0) Lymphocytes (%) (Auto) 46.3 % (21.0-51.0) Monocytes (%) (Auto) 5.9 % (3.0-13.0) Eosinophils (%) (Auto) 4.6 % (0.0-8.0) Basophils (%) (Auto) 0.5 % (0.0-5.0) Neutrophils # (Auto) 2.5 K/uL (1.8-7.7) Lymphocytes # (Auto) 2.7 K/uL (1.0-4.8) Monocytes # (Auto) 0.4 K/uL (0.1-1.0) Eosinophils # (Auto) 0.27 K/uL (0.00-0.70) Basophils # (Auto) 0.03 K/uL (0.00-0.20) Absolute Immature Granulocyte (auto 0.01 K/uL (0-1) Nucleated Red Blood Cells 0.0 % (0.0-0.19) Prothrombin Time 10.3 SEC (9.6-11.6) Prothromb Time International Ratio 0.97 (0.85-1.15) Activated Partial Thromboplast Time 28.0 SEC (26.3-35.5) Sodium Level 138 mmol/L (136-145) Potassium Level 4.5 mmol/L (3.5-5.1) Chloride Level 99 mmol/L (101-111) L Carbon Dioxide Level 27 mmol/L (21-32) Blood Urea Nitrogen 20 mg/dL (7-18) H Creatinine 0.7 mg/dL (0.5-1.0) Glomerular Filtration Rate Calc 103 mL/min (>90) Random Glucose 350 mg/dL (70-105) H Lactic Acid Level 1.7 mmol/L (0.8-2.5) Total Calcium 9.7 mg/dL (8.5-10.1) Total Bilirubin 0.3 mg/dL (0.2-1.0) Direct Bilirubin 0.1 mg/dL (0.0-0.3) Aspartate Amino Transf (AST/SGOT) 17 U/L (10-37) Alanine Aminotransferase (ALT/SGPT) 31 U/L (12-78) Alkaline Phosphatase 164 U/L (50-136) H Troponin I High Sensitivity < 4 ng/L (4-50) L Total Protein 8.0 g/dL (6.0-8.3) Albumin 3.3 g/dL (3.5-5.0) L Lipase 31 U/L (16-77) Procalcitonin < 0.05 ng/mL (0.05-0.5) L Influenza Type A Antigen Negative For Type A Influenza Type B Antigen Negative For Type B SARS-CoV-2, RNA, NAAT POSITIVE SARS CoV-2 Urine Color LIGHT-YELLOW (YELLOW) Urine Appearance CLEAR (CLEAR) Urine pH 5.5 (5.0-8.0) Urine Specific [place] 1.032 (1.001-1.031) Urine Protein 10 mg/dL (NEGATIVE) H Urine Glucose (UA) >=1000 mg/dL (NEGATIVE) H Urine Ketones 5 mg/dL (NEGATIVE) H Urine Occult Blood NEGATIVE (NEGATIVE) Urine Nitrate NEGATIVE (NEGATIVE) Urine Bilirubin NEGATIVE mg/dL (NEGATIVE) Urine Urobilinogen 0.2 mg/dL (0.2-1.0) Urine Leukocyte Esterase NEGATIVE Leti/uL Urine RBC 0-1 /HPF (0-1) Urine WBC 2-5 /HPF (0-1) H Urine Squamous Epithelial Cells RARE /HPF (0-2) Urine Bacteria None /HPF (None Seen) MDM Pt is stable and has no concerns. Pt will be discharge home to follow up with primary care physician. ED Course Orders Procedure Category Date Status Time 12 Lead Ekg Tracing- EKG 08/21/24 Logged Technical 12:14 Cbc With Differential LAB 08/21/24 Complete 12:14 Basic Metabolic Panel LAB 08/21/24 Complete 12:14 Hepatic Function Panel LAB 08/21/24 Complete 12:14 Lactic Acid LAB 08/21/24 Complete 12:14 Lipase LAB 08/21/24 Complete 12:14 Procalcitonin LAB 08/21/24 Complete 12:14 Pt And Ptt LAB 08/21/24 Complete 12:14 Troponin I High LAB 08/21/24 Complete Sensitivity 12:14 Urinalysis LAB 08/21/24 Complete W/Microscopic 12:14 Ondansetron 4mg Inj PHA 08/21/24 Complete (Zofran 4mg Inj) 12:30 Famotidine 20mg Vial PHA 08/21/24 Complete (Pepcid 20mg Vial) 12:30 Morphine 2mg Syg PHA 08/21/24 Complete (Morphine 2mg Syg) 12:30 Influenza Type A & B, LAB 08/21/24 Complete Rapid 12:28 Covid Rna Naat LAB 08/21/24 Complete 12:28 Chest 1vw RAD 08/21/24 Taken 13:51 Current Medications Medications (Trade) Dose Ordered Sig/Olesya Route PRN Reason Start Time Stop Time Status Last Admin Dose Admin Famotidine (Pepcid 20mg Vial) 20 mg ONCE ONCE IV 08/21/24 12:30 08/21/24 12:31 DC 08/21/24 13:45 Morphine Sulfate (morPHINE 2MG SYG) 2 mg ONCE ONCE IVP 08/21/24 12:30 08/21/24 12:31 DC 08/21/24 13:45 Ondansetron HCl (zoFRAN 4MG INJ) 4 mg ONCE ONCE IVP 08/21/24 12:30 08/21/24 12:31 DC 08/21/24 13:45 Vital Signs Date Time Temp Pulse Resp B/P (MAP) Pulse Ox O2 Delivery O2 Flow Rate FiO2 08/21/24 12:40 97.7 82 16 132/86 98 Room Air* 0 21 08/21/24 12:13 97.9 88 18 159/93 99 Room Air 0 DX & DISP Disposition: Discharge Departure Impression: Primary Impression: COVID-19 Additional Impression: Abdominal pain Condition: Stable Scripts Ondansetron (Ondansetron Odt) 4 Mg Tab.rapdis 4 MG PO DAILY for 5 Days, #5 TAB Prov: RG VILLARREAL MD 08/21/24 Azithromycin (Azithromycin) 250 Mg Tablet 1 TAB PO AD for 5 Days, #6 TAB 0 Refills 2 the first day followed by 1 for days 2-5 Prov: RG VILLARREAL MD 08/21/24 Referrals: SELF,REFERRAL (PCP) RG VILLARREAL MD Aug 21, 2024 14:35
[2024-08-21 15:05] VITALS: BP 119/77; PULSE 74; RESP 17; TEMP 98; O2SAT 98
--- NOTE | 2024-08-21 15:49 | EKG ---
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
--- NOTE | 2024-08-21 16:11 | HMCIMG ---
EXAM: CR Chest, 1 View. CLINICAL HISTORY: Shortness of breath COMPARISON: None provided. FINDINGS: LUNGS: The lungs show no infiltrate or other acute finding. PLEURAL SPACES: No evidence of pleural effusion or pneumothorax. MEDIASTINUM: The cardiomediastinal silhouette is within normal limits. BONES: No acute osseous abnormality. IMPRESSION: No acute cardiopulmonary pathology is evident. /[place]
== END 2024-08-21 15:21 | disposition home or self-care (01) ==
LOC: EDH 12:11
DX: U07.1 COVID-19 (principal); R10.9 Unspecified abdominal pain; E03.9 Hypothyroidism, unspecified; E78.00 Pure hypercholesterolemia, unspecified; K21.9 Gastro-esophageal reflux disease without esophagitis; Z79.84 Long term (current) use of oral hypoglycemic drugs; Z79.899 Other long term (current) drug therapy; Z87.11 Personal history of peptic ulcer disease; Z90.49 Acquired absence of other specified parts of digestive tract; Z98.51 Tubal ligation status; Z98.890 Other specified postprocedural states
CPT/HCPCS: 99285; 96374; 96375; 71045; 87635; 80076; 84484; 80048; 83690; 85025; 85610; 85730; 87804 ×2; 83605; 81001; 36415; 93005; 84145; J3490; J2270; J2405